=== PATIENT | male | born 1995 ===

== ENCOUNTER 2022-08-28 15:54 | Emergency (ER) | payer MEDICAID, OTHER ==
[~2022-08-28] VITALS: Ht 170.2 cm; Wt 88.0 kg
[2022-08-28 16:23] VITALS: BP 143/86
[2022-08-28] MEDS ORDERED: HYDROcodone-ACET 10/325MG TAB PO ONE (18:30)
[2022-08-28] MEDS ORDERED: cefTRIAXone W LIDOCAINE 1 GM IM IM ONE (18:30)
[2022-08-28] MEDS ORDERED: AZITHROMYCIN 250 MG TAB PO ONE (18:30)
[2022-08-28 18:42] LABS: Urine Bacteria NONE SEEN /hpf (None Seen); Urine Blood 3+ /uL (Negative); Urine Mucus FEW (None Seen); Urine Specific Gravity 1.035 (1.001-1.035); Urine WBC 502 /hpf (0 - 3)
[2022-08-28] MEDS ORDERED: DOXY-338 PO (18:58)
[2022-08-28] MEDS ORDERED: HYDR-4902 PO (18:58)
== END 2022-08-28 19:56 | disposition home or self-care (01) ==
LOC: ER 15:54
DX: N45.1 Epididymitis (principal); N39.0 Urinary tract infection, site not specified
CPT/HCPCS: 76870; 81001; 96372; 99284; J0696